=== PATIENT | male | born 1970 | race Caucasian/White ===

== ENCOUNTER 2025-03-25 06:58 | Emergency (ER) | payer MEDICAID ==
[~2025-03-25] VITALS: Ht 172.7 cm; Wt 60.9 kg
[2025-03-25 07:00] VITALS: BP 199/132; PULSE 111; RESP 18; TEMP 97.9; O2SAT 97
--- NOTE | 2025-03-25 07:36 | Physician Documentation ---
Addendum CHIEF COMPLAINT/HPI: The patient is a 55-year-old male who complains of parasitic infestation of the right nostril over the past two years. He does admit to alcohol consumption and methamphetamine abuse (last time yesterday). He reports a history of hypertension but is currently not taking any medications for this. He also was taking psychiatric medication but not any longer. REVIEW OF SYSTEMS: Constitutional: Denies chills, fatigue, fever, weight gain or weight loss. HEENT: Denies hearing loss, sinus pressure or visual changes. Complains of white parasites coming out of his right nostril. Respiratory: Denies cough, shortness of breath or wheezing. Cardiovascular: Denies chest pain, pain while walking (claudication), edema or palpitations. Gastrointestinal: Denies abdominal pain, blood in stool, constipation, diarrhea, heartburn, loss of appetite, nausea or vomiting. Genitourinary: Denies painful urination (dysuria), excessive amount of urine (polyuria) or urinary frequency. Metabolic/Endocrine: Denies cold intolerance, heat intolerance, excessive thirst (polydipsia) or excessive hunger (polyphagia). Neurological: Denies dizziness, extremity numbness, extremity weakness, headaches, seizures or tremors. Psychiatric: Denies anxiety or depression. Integumentary: Denies breast discharge, breast lump, hives, mole change(s), rash or skin lesion. Musculoskeletal: Denies back pain, joint pain, joint swelling or neck pain. Hematologic: Denies easily bleeding, easily bruises, lymphedema or issues with blood clots. Immunologic: Denies food allergies or seasonal allergies. PHYSICAL EXAMINATION: Vitals and nursing note reviewed. Constitutional: General: Patient is awake, alert, oriented x 4 in no acute distress and well appearing. Speech is clear and lucid. Appearance: Normal appearance. Patient is not ill-appearing, toxic-appearing or diaphoretic. HENT: Head: Normocephalic and atraumatic. Mouth: Mucous membranes are moist. Pharynx: Oropharynx is clear. Nose: Both nostrils appear normal without evidence of inflammation or infestations. Eyes: General: No scleral icterus. Extraocular Movements: Extraocular movements intact. Pupils: Pupils are equal, round, and reactive to light. Neck: Supple, no Kernig or Brudzinski sign. Cardiovascular: Rate and Rhythm: Normal rate and regular rhythm. Heart sounds: No murmur heard. Pulmonary: Effort: No respiratory distress. Breath sounds: No wheezing, rhonchi or rales. Abdominal: General: There is no distension. Palpations: There is no fluid wave, hepatomegaly or mass. Tenderness: There is no abdominal tenderness. There is no guarding. Musculoskeletal: General: No swelling or deformity. Skin: Coloration: Skin is not jaundiced. Findings: No erythema or rash. Neurological: Mental Status: Patient is alert. 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 I am going to provide him with a list of clinics to establish care. I also advised him to stop drinking and using drugs. He does not appear to be toxic or septic at this time. He does not appear to be in acute alcohol withdrawal. Departure Disposition: 01 HOME / SELF CARE / HOMELESS Impression: Primary Impression: Delusions of parasitosis Condition: Stable Additional Instructions: Please establish care at one of the clinics on the list we provided. Education Educated: Patient Educated regarding: diagnosis, need for follow up LISSET THOMAS MD Mar 25, 2025 07:36
== END 2025-03-25 08:16 | disposition home or self-care (01) ==
LOC: ER 07:00
DX: F22 Delusional disorders (principal); B89 Unspecified parasitic disease; F15.10 Other stimulant abuse, uncomplicated; I10 Essential (primary) hypertension
CPT/HCPCS: 99282